=== PATIENT | male | born 2000 | race Caucasian/White ===

== ENCOUNTER 2022-01-08 15:26 | Emergency (ER) | payer BC, SELFPAY ==
[2022-01-08 15:27] VITALS: BP 144/83; PULSE 97; RESP 15; TEMP 36; O2SAT 97; BMI 23.0
--- NOTE | 2022-01-08 15:38 | EDS_ITS ---
HPI History of Present Illness Chief Complaint: Lower Extremity Injury Informant: patient Onset/Context/Timing Onset: Today Current Severity: Moderate Maximum Severity: Moderate Narrative Narrative: Patient presents with left ankle injury. He was playing kickball today, sliding into a base when he injured his left ankle. He states he felt a pop. He is not been able to put weight on it. No prior ankle surgeries. He denies any other injury. He has not taken anything for pain. [facility] Medical History ADHD Home Medications dexmethylphenidate 10 mg capsule,extended release [id number] 10 mg PO DAILY 01/08/22 [History Last Taken Unknown] dexmethylphenidate 2.5 mg tablet 2.5 mg PO BID 01/08/22 [History Last Taken Unknown] dexmethylphenidate 5 mg tablet 5 mg PO DINNER 01/08/22 [History Last Taken Unknown] Allergy/AdvReac Type Severity Reaction Status Date / Time No Known Allergies Allergy Verified 01/08/22 15:27 Social History Smoking Status: Never smoker ROS ROS ED Constitutional Constitutional ED: Denies chills or fever(s) Eyes Eyes: Denies change in vision or discharge from eye(s) ENT ENT ED: Denies discharge from eye(s), rhinorrhea or sore throat Cardiovascular Cardiovascular: Denies chest pain or palpitations Respiratory/Chest Respiratory/Chest: Denies cough or dyspnea Gastrointestinal Gastrointestinal: Denies abdominal pain, diarrhea, nausea or vomiting Musculoskeletal Musculoskeletal: Reports extremity pain; Denies back pain Integumentary Denies Abrasions or rash Neurologic Neurologic: Denies headache(s) or paresthesias Allergic/Immunologic Allergic/Immunologic ED: Denies lip swelling or urticaria EXAM Physical Exam Const Vital Signs: 01/08/22 15:27 Temperature 96.8 F L Temperature Source Temporal Pulse Rate 97 Respiratory Rate 15 Blood Pressure 144/83 H Blood Pressure Mean 103 Pulse Ox 97 Oxygen Delivery Method Room Air Positive well nourished and well developed General Appearance ED: well developed HEENT Reports normocephalic and head/scalp atraumatic Eyes PERRL and EOMs intact bilaterally Neck supple Chest Wall inspection of chest normal and palpation of chest normal Resp normal respiratory effort and clear to auscultation bilaterally Cardio regular rate and regular rhythm GI normal to inspection, nondistended, normoactive bowel sounds Palpation: soft Extremity Extremity Narrative: Tenderness palpation with edema to the lateral malleolus of the left ankle. No tenderness over the foot itself or at the proximal fibula. Good sensation and cap refill. No abrasions or open wounds. Neuro oriented x3 and no sensory deficits noted Sensorium / Orientation: alert Psych mental status grossly normal Skin no rashes or lesions noted MDM MDM MDM Narrative Medical decision making narrative: Patient given naproxen for pain. Left ankle x-rays obtained. Treatment and Re-Evaluation Narrative: Left ankle x-rays reveal a Maldonado B distal fibula fracture per my interpretation. X-rays are reviewed with the patient. Patient is placed in a posterior plus sugar-tong splint for ankle stability. He has crutches from the [employer] that he will use and he is to remain nonweightbearing. He declines anything stronger for pain. He will be referred to Dr. Phelps, on-call for foot and ankle surgery today. Return instructions are provided. Discharge Plan Triage Chief Complaint: Lower Extremity Injury ED Provider: Belkis Dowling Dx/Rx/DC Orders Clinical Impression: Ankle fracture, left Instructions: ED Ankle Fracture, Distal Fibula Prescriptions: No Action dexmethylphenidate 5 mg Tablet 5 mg PO DINNER dexmethylphenidate 2.5 mg Tablet 2.5 mg PO BID Rx Instructions: administer doses at least 4 hours apart dexmethylphenidate 10 mg Capsule,Er Biphasic 50-50 10 mg PO DAILY Primary Care Provider: Darvin Martinez Referrals: Vince Phelps DPM [[facility] Staff - Active Staff] - 3-5 Days [facility] Doctor,Out of [Non-Staff] - Activity Restrictions/Additional Instructions: Call Dr. Phelps's office on Monday. Let them know you were seen in the emergency room on Monday with a distal fibula fracture. They will get you scheduled for follow-up. Please keep your splint clean and dry. Remain nonweightbearing with your crutches until seen and evaluated by the surgeon. Disposition Disposition: Home, Self Care
[2022-01-08] MEDS: Naproxen 500 MG Tablet PO (15:48)
--- NOTE | 2022-01-08 16:03 | RAD_ITS ---
STUDY: X-RAY - LEFT ANKLE REASON FOR EXAM: Male, 21 years old. injury TECHNIQUE: 3 view(s) of the ankle. COMPARISON: None. FINDINGS: Acute nondisplaced oblique fracture the distal left fibula the level tibial plafond with surrounding soft tissue swelling. Normal medial and lateral malleoli. Normal tibiotalar articulation and ankle mortise. Normal visualized talus and calcaneus. The visualized subtalar, talonavicular, calcaneocuboid and tarsal articulations are normal. The soft tissue structures are unremarkable. RAD/Ankle min 3 Views IMPRESSION: Acute nondisplaced oblique fracture of the distal fibula the tibial plafond with surrounding soft tissue swelling. Electronically Signed: Leonard Estes MD at 16:27 EDT ,
[2022-01-08 16:33] VITALS: PULSE 84; RESP 17; O2SAT 98
== END 2022-01-08 16:34 | disposition home or self-care (01) ==
PROVIDERS: Emergency Provider Emergency Medicine; Visit Provider Emergency Medicine
DX: S82.892A Other fracture of left lower leg, initial encounter for closed fracture (principal); Y93.6A Activity, physical games generally associated with school recess, summer camp and children
CPT/HCPCS: 73610; 99283

== ENCOUNTER → 2022-03-17 | Outpatient (CLI) | payer BC, SELFPAY ==
--- NOTE | 2022-03-17 07:59 | CT_ITS ---
STUDY: CT LEFT ANKLE WITHOUT CONTRAST REASON FOR EXAM: Male, 21 years old. ] Fracture RADIATION DOSAGE (If Supplied By Facility): CTDIvol = ( 15.35 ) mGy, DLP = ( 407.49 ) mGycm TECHNIQUE: Thin section transaxial imaging of the ankle was obtained, with sagittal and coronal reconstructed images. Individualized dose optimization techniques were used for this CT. COMPARISON: X-ray of the left ankle dated January 08, 2022 FINDINGS: There is 50% interval healing of the oblique fracture of the distal fibula/lateral malleolus junction with 50% of the fracture site remaining unmineralized or closed. No callus formation and periosteal reaction is present at the peripheral aspect of the fracture site, although bridging matrix is seen across regions of the central fracture site. There are no acute fractures of the remaining bony structures. Normal visualized distal tibia. Normal tibiotalar articulation and talar dome. Normal talus, calcaneus, navicular and cuboid tarsal bones. Normal subtalar, talonavicular and calcaneocuboid articulations. Normal navicular-cuneiform, cuneiform tarsal bones and intercuneiform articulations. Normal tarsometatarsal articulations and visualized metatarsi. The soft tissue structures are grossly normal. CT/Extremity Lower without Contra IMPRESSION: 1. There is 50% interval healing of the oblique fracture of the distal fibula/lateral malleolus junction with 50% of the fracture site remaining unmineralized or closed. No callus formation and periosteal reaction is present at the peripheral aspect of the fracture site, although bridging matrix is seen across regions of the central fracture site. Electronically Signed: John Jones MD at 15:56 EST ,
== END | disposition home or self-care (01) ==
LOC: CT 07:57
PROVIDERS: Visit Provider Student in an Organized Health Care Education/Training Program
DX: S82.842K Displaced bimalleolar fracture of left lower leg, subsequent encounter for closed fracture with nonunion (principal)
CPT/HCPCS: 73700